=== PATIENT | female | born 1960 | race Caucasian/White ===

== ENCOUNTER → 2021-07-15 | Outpatient (CLI) | payer OTHER ==
[~2021-07-15] MED LIST: 'BUSPAR5 MG PO; ATARAX25 MG PO; BIRTH CONTROL1 EAC1 PO; BUSPAR5 MG PO; BUSPIRONE5 MG PO; EFFEXOR75 MG PO; ELIMITE 5%60 GM PO; GOOD NEIGHBOR150 MG PO; HYDROCODONE BIT1 T11 PO; LIDEX0.05% T; Motrin,Rufen800 MG PO; NO DAILY MEDS; PREDNICOT20 MG PO; SEROQUEL25 MG PO; SEROQUEL50 MG PO; VICODIN 5/500 505 MG PO; VICODIN 500 MG-1 TAB PO; ZANTAC150 MG PO; ZOFRAN ODT4 MG SL
== END | disposition home or self-care (01) ==
LOC: RAD 11:09
PROVIDERS: ATTEND Nurse Practitioner Family
DX: M19.072 Primary osteoarthritis, left ankle and foot (principal)

== ENCOUNTER 2024-01-18 07:22 | Emergency (ER) | payer OTHER ==
[~2024-01-18] VITALS: Wt 66.7 kg
[2024-01-18] MEDS ORDERED: PAROXETINE HCL30 MG PO (07:33)
[2024-01-18] MEDS ORDERED: ATORVASTATIN CA20 M1 PO (07:34)
[2024-01-18] MEDS ORDERED: MELOXICAM15 MG PO (08:36)
== END 2024-01-18 08:37 | disposition home or self-care (01) ==
LOC: ED 07:22
DX: M25.562 Pain in left knee (principal); F41.9 Anxiety disorder, unspecified; Z88.8 Allergy status to other drugs, medicaments and biological substances; Z90.49 Acquired absence of other specified parts of digestive tract

== ENCOUNTER → 2024-01-19 | Outpatient (CLI) | payer OTHER ==
[~2024-01-19] MED LIST changes: +ATORVASTATIN CA20 M1 PO; +MELOXICAM15 MG PO; +PAROXETINE HCL30 MG PO
[2024-01-19 12:18] LABS: BASO # 0.1 10*3/uL (0.0-0.1); BASO % 0.5 % (0.0-1.0); EOS # 0.1 10*3/uL (0.0-0.4); EOS % 0.8 % (1.0-4.0); HEMATOCRIT 43.1 % (37.0-47.0); MEAN CELL VOLUME 92.1 fl (81.0-99.0); MEAN CORPUSCULAR HGB CONC 33.6 g/dl (33.0-37.0); MEAN PLATELET VOLUME 10.3 fl (9.6-12.3); MONO # 0.8 10*3/uL (0.1-1.0); MONO % 7.1 % (3.0-9.0); NEUT # 8.5 10*3/uL (2.3-7.9); NEUT % 72.3 % (47.0-73.0); PLATELET COUNT AUTOMATED 286 10*3/uL (130-400); RED BLOOD COUNT 4.68 10*6/uL (4.10-5.10); RED CELL DISTRI WIDTH 11.9 % (0-14.5); WHITE BLOOD COUNT 11.8 10*3/uL (4.8-10.8)
[2024-01-19 14:26] LABS: BF LYMPHOCYTES 2 %; BF MONOCYTES 10 %; BF NEUTROPHILS 88 %
[2024-01-20 06:06] LABS: HBsAG SCREEN Negative (Negative); HCV Ab Non Reactive (Non Reactive); HEP B CORE Ab, IgM Negative (Negative)
[2024-01-20 13:04] LABS: CCP ANTIBODIES IGG/IGA 9 units (0-19)
[2024-01-20 16:04] LABS: ACID FAST SPEC PROCESSING Concentration (.)
[2024-01-21 12:03] LABS: LUPUS DRVVT 38.6 sec (0.0-47.0); PTT-LA 34.4 sec (0.0-43.5)
[2024-01-22 11:04] LABS: ANTI-RNP ANTIBODIES <0.2 AI (0.0-0.9)
[2024-01-22 17:03] LABS: LUPUS REFLEX INTERPRETATION Comment: (.)
== END | disposition home or self-care (01) ==
LOC: LAB 11:43
PROVIDERS: ATTEND Orthopaedic Surgery
DX: M25.462 Effusion, left knee (principal)